=== PATIENT | female | born 1950 | race Caucasian/White ===

== ENCOUNTER → 2018-12-01 | Outpatient (CLI) | payer MEDICARE, OTHER ==
[~2018-12-01] MED LIST: AMLO-150; BENA10TA4; METF10002 PO; PIOG15TA4; ROSU10TA2
== END | disposition home or self-care (01) ==
LOC: ROC 14:27
PROVIDERS: ATTEND Radiology Radiation Oncology
DX: C51.9 Malignant neoplasm of vulva, unspecified (principal); E11.9 Type 2 diabetes mellitus without complications; E78.00 Pure hypercholesterolemia, unspecified; I10 Essential (primary) hypertension; Z88.0 Allergy status to penicillin; Z78.0 Asymptomatic menopausal state
CPT/HCPCS: G0463

== ENCOUNTER → 2018-12-04 | Outpatient (CLI) | payer MEDICARE, OTHER | END | disposition home or self-care (01) | LOC: PETCFH 09:19 | PROVIDERS: ATTEND Specialist | DX: K57.30 Diverticulosis of large intestine without perforation or abscess without bleeding (principal); Z85.44 Personal history of malignant neoplasm of other female genital organs | CPT/HCPCS: 78815; A9552 ==

== ENCOUNTER 2019-01-14 12:07 | Emergency (ER) | payer MEDICARE, OTHER ==
[~2019-01-14] VITALS: Ht 165.1 cm; Wt 93.2 kg
[~2019-01-14 12:07] MED LIST changes: +CIPR500T3 PO
[2019-01-14 12:57] LABS: BASOPHILS # (AUTO) 0.02 x10^3/uL (0-0.1); BASOPHILS % (AUTO) 0 % (0-1); EOSINOPHILS # (AUTO) 0.08 x10^3/uL (0-0.4); EOSINOPHILS % (AUTO) 1 % (1-7); LYMPHOCYTES # (AUTO) 0.19 x10^3/uL (1-3.4); LYMPHOCYTES % (AUTO) 3 % (22-44); MD NO; MEAN CORPUSCULAR HGB CONC 32.9 g/dL (32.4-35.8); MEAN CORPUSCULAR VOLUME 91.1 fL (80-100); MONOCYTES # (AUTO) 0.44 x10^3/uL (0.2-0.8); MONOCYTES % (AUTO) 7 % (2-9); NEUTROPHILS % (AUTO) 89 % (42-75); PLATELET COUNT 271 x10^3/uL (130-400); RED BLOOD COUNT 3.72 x10^6/uL (3.82-5.3); RED CELL DISTRIBUTION WIDTH 13.7 % (9.6-15.2)
[2019-01-14] MEDS ORDERED: ACETAMINOPHEN 325 MG TABLET PO ONE (13:00)
[2019-01-14 13:07] LABS: ANION GAP 10 mmol/L (5-15); CHLORIDE 106 mmol/L (98-107); CREATININE 0.91 mg/dL (0.55-1.02)
[2019-01-14 13:08] LABS: ALANINE AMINOTRANSFERASE 14 U/L (12-78); ALBUMIN 3.2 g/dL (3.4-5.0)
[2019-01-14 13:12] LABS: ALKALINE PHOSPHATASE 119 U/L (45-117); BILIRUBIN,TOTAL 1.2 mg/dL (0.2-1.0); TOTAL PROTEIN 7.1 g/dL (6.4-8.2)
[2019-01-14] MEDS ORDERED: MORPHINE SULFATE 4 MG/ML, 1ML ONE ×2 (13:15→14:59)
[2019-01-14] MEDS: MORPHINE SULFATE 4 MG/ML, 1ML IVPush PRN ×2 (13:19→15:02)
[2019-01-14] MEDS ORDERED: LIDOCAINE 2%,20 ML JEL.PF.APP MM ONE (13:24)
--- NOTE | 2019-01-14 13:29 | NUR ---
MINICATH COMPLETED AND WALKED TO LAB. PATIENT MEDICATED PRIOR TO MINICATH AND LIDOCAINE PLACED ON VULVA POST TREATMENT. PATIETN TOLERATED WELL.
[2019-01-14 13:30] LABS: CALCIUM 5.7 mg/dL (8.5-10.1)
[2019-01-14] MEDS ORDERED: ONDANSETRON 2MG/ML, 2ML IVPush ONE ×2 (13:30→17:30)
[2019-01-14] MEDS ORDERED: SODIUM CHLORIDE FLUSH 10ML SYR IVF ONE (13:30)
[2019-01-14] MEDS ORDERED: ACETAMINOPHEN 325 MG TABLET ONE (13:31)
[2019-01-14 13:41] LABS: MICROSCOPIC NOT IND
[2019-01-14 13:43] LABS: CULTURE INDICATED? NO
[2019-01-14] MEDS ORDERED: CALCIUM CHLORIDE 10%, 10ML SYR IVPush ONE (14:00)
[2019-01-14] MEDS ORDERED: INSULIN REGULAR 100 UNITS/ML, 3ML VIAL IVPush ONE (14:00)
[2019-01-14] MEDS ORDERED: DEXTROSE 50%, 50ML SYRINGE IVPush ONE (14:00)
[2019-01-14] MEDS ORDERED: CALCIUM GLUCONATE 9.2 MEQ in SODIUM CHLORIDE 0.9% 100 ML IV ONE (14:00)
[2019-01-14] MEDS ORDERED: SODIUM POLY SULFONATE UDC 15 GM/60 ML PO ONE (14:00)
--- NOTE | 2019-01-14 14:21 | NUR ---
PATIENT TAKEN TO CT SCAN
[2019-01-14] MEDS ORDERED: OMNIPAQUE 350 MG/ML, 100ML BOTTLE ONE (14:30)
--- NOTE | 2019-01-14 15:09 | NUR ---
MD IN TO SPEAK WITH PATIENT ABOUT PLAN OF CARE. PATIENT REQUESTED MORE PAIN MEDICATION. MEDS GIVEN.
[2019-01-14] MEDS ORDERED: CEFOTETAN PMX 1GM/50ML 50 ML ONE (15:20)
[2019-01-14] MEDS ORDERED: ONDANSETRON 2MG/ML, 2ML ONE (15:23)
[2019-01-14] MEDS ORDERED: METRONIDAZOLE PMX 500MG/100ML 100 ML IV ONE (15:30)
[2019-01-14] MEDS ORDERED: CEFOTETAN PMX 1GM/50ML 50 ML IV ONE (15:30)
--- NOTE | 2019-01-14 15:40 | NUR ---
COMFORT MEASURES TAKEN AND PATIENT PLACED ON 2 L NC FOR DESATURATION WITH SLEEPING.
[2019-01-14] MEDS ORDERED: METRONIDAZOLE PMX 500MG/100ML 100 ML ONE (16:13)
[2019-01-14 17:02] VITALS: BP 153/80
--- NOTE | 2019-01-14 17:14 | NUR ---
PATIENT BECAUSE NAUSEATED AGAING DRY HEAVED. PROVIDER NOTIFIED AND GIVEN ZOFRAN IV. AT BS. PLAN TO ENSURE NAUSEA IS RESOLVED AND THEN DC
== END 2019-01-14 17:56 | disposition home or self-care (01) ==
LOC: ED 14:09
DX: K57.92 Diverticulitis of intestine, part unspecified, without perforation or abscess without bleeding (principal); E83.51 Hypocalcemia; R50.9 Fever, unspecified; R10.2 Pelvic and perineal pain; I10 Essential (primary) hypertension; E11.9 Type 2 diabetes mellitus without complications
CPT/HCPCS: 36415; 74177; 80053; 81003; 83605; 84145; 85025; 87040; 93005; 96365; 96367; 96368; 96375; 96376; 99284; J0610; J2270; J2405; J3490; Q9967; J1815

== ENCOUNTER 2019-01-22 13:21 | Outpatient (CLI) | payer MEDICARE, OTHER ==
[~2019-01-22 13:21] MED LIST changes: -BENA10TA4; +BENA10TA6
== END 2019-01-22 23:59 | disposition home or self-care (01) ==
LOC: RAD 13:21
PROVIDERS: ATTEND Radiology Radiation Oncology
DX: C51.9 Malignant neoplasm of vulva, unspecified (principal); R60.0 Localized edema

== ENCOUNTER 2019-01-24 09:53 | Inpatient (IN) | payer MEDICARE, OTHER ==
[~2019-01-24] VITALS: Ht 165.1 cm; Wt 91.4 kg
[~2019-01-24 09:53] MED LIST changes: +BENA10TA4; -BENA10TA6
--- NOTE | 2019-01-24 10:19 | NUR ---
NEURO AT BS FOR EVAL. MD VICTOR AT BS FOR EVAL
[2019-01-24 10:25] LABS: MEAN CORPUSCULAR HEMOGLOBIN 29.4 pg (27.0-34.8); MEAN CORPUSCULAR HGB CONC 32.6 g/dL (32.4-35.8); MEAN PLATELET VOLUME 7.2 fL (7.4-10.4); PLATELET COUNT 170 x10^3/uL (130-400); RED BLOOD COUNT 3.02 x10^6/uL (3.82-5.3); RED CELL DISTRIBUTION WIDTH 13.9 % (9.6-15.2)
[2019-01-24 10:34] LABS: INTERNATIONAL NORMALIZED RATIO 1.2 (0.93-1.1); PROTHROMBIN TIME 12.5 Seconds (9.6-11.5)
[2019-01-24] MEDS ORDERED: ATOR-2 PO (10:37)
[2019-01-24 10:42] LABS: BASOPHILS % (AUTO) 0 % (0-1); EOSINOPHILS # (AUTO) 0.01 x10^3/uL (0-0.4); EOSINOPHILS % (AUTO) 0 % (1-7); LYMPHOCYTES # (AUTO) 0.11 x10^3/uL (1-3.4); LYMPHOCYTES % (AUTO) 1 % (22-44); MD SCAN; MONOCYTES # (AUTO) 0.27 x10^3/uL (0.2-0.8); MONOCYTES % (AUTO) 3 % (2-9); NEUTROPHILS % (AUTO) 95 % (42-75)
--- NOTE | 2019-01-24 10:47 | NUR ---
REPORT TO MARCIAL CARRANZA
--- NOTE | 2019-01-24 10:51 | NUR ---
REPORT FROM SIMONE CARRANZA, PT MOVED TO ROOM 16. PT ON MONITOR, VSS ON RA. AWAITING BED ASSIGNMENT
--- NOTE | 2019-01-24 11:02 | NUR ---
PT HAD EPISODE OF HR DROPPING INTO 40'S WITH MULTIFOCAL ECTOPY AND BACK INTO SR 83-96. MD NOTIFIED. REPEAT EKG ORDERED
[2019-01-24] MEDS ORDERED: MAGNESIUM SULFATE 1 GM/2 ML IVPush ONE (11:30)
[2019-01-24] MEDS ORDERED: CALCIUM GLUCONATE 9.2 MEQ in SODIUM CHLORIDE 0.9% 100 ML IV ONE (11:30)
[2019-01-24] MEDS ORDERED: LIDOCAINE 2%,20 ML JEL.PF.APP MM ONE (11:35)
--- NOTE | 2019-01-24 11:48 | NUR ---
STRAIGHT CATH UA OBTAINED, PT HAD ANOTHER EPISODE OF HR DROPPING INTO 40'S, NOTIFIED. PT MEDICATED PER MAR
[2019-01-24 11:51] LABS: THYROID STIMULATING HORMONE 0.613 mIU/L (0.358-3.740)
[2019-01-24] MEDS ORDERED: OMNIPAQUE 350 MG/ML, 100ML BOTTLE ONE (11:56)
[2019-01-24] MEDS ORDERED: MAGNESIUM SULFATE 1 GM in SODIUM CHLORIDE 0.9% 50 ML IV ONE (12:00)
[2019-01-24] MEDS ORDERED: ACETAMINOPHEN 325 MG TABLET PO ONE (12:00)
[2019-01-24] MEDS ORDERED: MORPHINE SULFATE 4 MG/ML, 1ML ONE (12:12)
--- NOTE | 2019-01-24 12:22 | NUR ---
ok per pharmacy to run Mag Sulfate and Calcium Gluconate together
[2019-01-24] MEDS ORDERED: ACETAMINOPHEN 500 MG TABLET ONE (12:23)
[2019-01-24 12:28] LABS: MICROSCOPIC NOT IND
[2019-01-24] MEDS ORDERED: MORPHINE SULFATE 4 MG/ML, 1ML IVPush PRN (12:30)
[2019-01-24 12:40] LABS: CULTURE INDICATED? NO
[2019-01-24] MEDS ORDERED: NS + 40MEQ KCL 500 ML IV SCH (13:00)
[2019-01-24] MEDS ORDERED: CEFTRIAXONE PMX 1GM/50ML 50 ML IV ONE (13:00)
--- NOTE | 2019-01-24 13:05 | NUR ---
report to break ednise Angeles
[2019-01-24] MEDS ORDERED: POTASSIUM CHLORIDE 20 MEQ in SODIUM CHLORIDE 0.9% 1,000 ML IV ONE (13:12)
[2019-01-24] MEDS ORDERED: CEFTRIAXONE PMX 1GM/50ML 50 ML ONE (13:18)
[2019-01-24] MEDS ORDERED: SODIUM CHLORIDE FLUSH 10ML SYR IVF PRN (13:30)
[2019-01-24] MEDS ORDERED: POTASSIUM PHOSPHATE 44 MEQ in SODIUM CHLORIDE 0.9% 500 ML IV ONE (13:30)
[2019-01-24] MEDS ORDERED: MAGNESIUM SULFATE 6 GM in SODIUM CHLORIDE 0.9% 150 ML IV ONE (13:30)
[2019-01-24] MEDS ORDERED: METRONIDAZOLE PMX 500MG/100ML 100 ML IV ONE (13:30)
[2019-01-24] MEDS ORDERED: MAGNESIUM SULF. PMX 20GM/500ML 500 ML IV PRN (13:30)
[2019-01-24] MEDS ORDERED: CALCIUM GLUCONATE 13.8 MEQ in SODIUM CHLORIDE 0.9% 100 ML IV ONE ×2 (13:30→22:00)
--- NOTE | 2019-01-24 13:44 | NUR ---
report to uyen walker
[2019-01-24 13:47] LABS: ALBUMIN 2.5 g/dL (3.4-5.0); ANION GAP 19 mmol/L (5-15); CHLORIDE 98 mmol/L (98-107)
[2019-01-24 13:50] LABS: % IRON SATURATION 13 % (20-55); ALANINE AMINOTRANSFERASE 9 U/L (12-78); ALKALINE PHOSPHATASE 97 U/L (45-117); BILIRUBIN,TOTAL 1.1 mg/dL (0.2-1.0); CREATININE 1.06 mg/dL (0.55-1.02); IRON LEVEL 25 mcg/dL (50-170); TOTAL IRON BINDING CAPACITY 188 mcg/dL (250-450); TOTAL PROTEIN 6.3 g/dL (6.4-8.2)
[2019-01-24] MEDS ORDERED: PHARMACY INSTRUCTION MC PRN (14:00)
[2019-01-24] MEDS ORDERED: ONDANSETRON 2MG/ML, 2ML IVPush PRN (14:00)
[2019-01-24] MEDS ORDERED: OXYcodone 5 MG/5 ML ORAL.SOL UDC PO PRN (14:00)
[2019-01-24 14:24] LABS: CALCIUM < 5.0 mg/dL (8.5-10.1)
[2019-01-24 14:30] LABS: HEMOGLOBIN A1C 8.3 % (4.2-6.3)
[2019-01-24 14:43] VITALS: BP 141/60
[2019-01-24] MEDS ORDERED: hydrALAzine 20 MG/ML, 1ML IV PRN (15:00)
[2019-01-24] MEDS ORDERED: CEFTRIAXONE PMX 2GM/50ML 50 ML IV SCH (15:00)
[2019-01-24] MEDS: SODIUM CHLORIDE 0.9% 1,000 ML IV SCH (15:41)
[2019-01-24] MEDS: POTASSIUM CHLORIDE 20 MEQ TAB.ER.PRT PO SCH ×3 (16:00→20:04)
[2019-01-24] MEDS ORDERED: METF500T17 PO (16:04)
[2019-01-24] MEDS: HEPARIN 5,000 UNITS/ML, 1ML SQ SCH (16:29)
[2019-01-24] MEDS: METRONIDAZOLE PMX 500MG/100ML 100 ML IV SCH (16:29)
[2019-01-24] MEDS: FERROUS SULFATE 325 MG TABLET PO SCH (18:05)
[2019-01-24] MEDS: INSULIN LISPRO 100 UNITS/ML, PEN SQ-INSULIN SCH ×2 (18:06→20:10)
[2019-01-24 20:17] VITALS: BP 144/71
[2019-01-24 20:34] LABS: ALBUMIN 2.3 g/dL (3.4-5.0); ANION GAP 11 mmol/L (5-15); CHLORIDE 98 mmol/L (98-107)
[2019-01-24 20:39] LABS: ALANINE AMINOTRANSFERASE 10 U/L (12-78); ALKALINE PHOSPHATASE 95 U/L (45-117); BILIRUBIN,TOTAL 1.8 mg/dL (0.2-1.0); CREATININE 0.81 mg/dL (0.55-1.02); TOTAL PROTEIN 6.6 g/dL (6.4-8.2)
[2019-01-24 20:42] LABS: CALCIUM 5.9 mg/dL (8.5-10.1)
[2019-01-24] MEDS ORDERED: ATORVASTATIN 80 MG TABLET PO SCH (21:00)
[2019-01-24] MEDS ORDERED: POTASSIUM CHLORIDE 20 MEQ TAB.ER.PRT PO ONE (22:00)
[2019-01-25] MEDS ORDERED: POTASSIUM CHLORIDE 20 MEQ in SODIUM CHLORIDE 0.9% 250 ML IV ONE
[2019-01-25] MEDS: HEPARIN 5,000 UNITS/ML, 1ML SQ SCH ×3 (00:12→16:11)
[2019-01-25 00:30] VITALS: BP 148/74
[2019-01-25] MEDS: METRONIDAZOLE PMX 500MG/100ML 100 ML IV SCH ×3 (00:46→16:44)
[2019-01-25] MEDS: SODIUM CHLORIDE 0.9% 1,000 ML IV SCH (03:59)
[2019-01-25] MEDS ORDERED: CALCIUM GLUCONATE 13.8 MEQ in SODIUM CHLORIDE 0.9% 100 ML IV ONE ×2 (05:00)
[2019-01-25 05:02] LABS: ALBUMIN 2.3 g/dL (3.4-5.0); ANION GAP 7 mmol/L (5-15); CALCIUM 7.1 mg/dL (8.5-10.1); CHLORIDE 106 mmol/L (98-107)
[2019-01-25 05:07] LABS: ALANINE AMINOTRANSFERASE 10 U/L (12-78); ALKALINE PHOSPHATASE 98 U/L (45-117); BILIRUBIN,TOTAL 0.9 mg/dL (0.2-1.0); CHOLESTEROL, TOTAL 92 mg/dL (140-239); CREATININE 0.67 mg/dL (0.55-1.02); HDL CHOL % 50 % (28-40); HDL CHOLESTEROL (DIRECT) 46 mg/dL (40-60); LDL CHOLESTEROL,CALCULATED 27 mg/dL (54-169); LDL/HDL RATIO 0.6 (0.5-3.0); TOTAL PROTEIN 6.4 g/dL (6.4-8.2); TRIGLYCERIDES 93 mg/dL (50-200); VLDL CHOLESTEROL 19 mg/dL (0-25)
[2019-01-25] MEDS: INSULIN LISPRO 100 UNITS/ML, PEN SQ-INSULIN SCH ×3 (07:00→16:00)
[2019-01-25] MEDS: FERROUS SULFATE 325 MG TABLET PO SCH ×3 (08:37→16:44)
[2019-01-25 08:40] VITALS: BP 171/81
[2019-01-25] MEDS ORDERED: AMLODIPINE 5 MG TABLET PO SCH (09:00)
[2019-01-25] MEDS ORDERED: ASPIRIN 81 MG TABLET CHEW PO/NG SCH (09:00)
[2019-01-25 13:00] VITALS: BP 131/73
[2019-01-25] MEDS ORDERED: CEFTRIAXONE PMX 2GM/50ML 50 ML IV SCH (13:30)
[2019-01-25] MEDS ORDERED: CALC1TAB68 PO (16:01)
[2019-01-25] MEDS ORDERED: FERR-51 PO (16:01)
[2019-01-25] MEDS ORDERED: CIPR500T87 PO (16:03)
[2019-01-25] MEDS ORDERED: METR500T PO (16:03)
== END 2019-01-25 18:57 | disposition home health service (06) | DRG 640 ==
LOC: ED 10:26 → SUATTDRO 13:01 → EDIP 13:29 → 5SO 14:27
PROVIDERS: ADMIT Internal Medicine; ATTEND Internal Medicine
PROC: 0T9B70Z Drainage of Bladder with Drainage Device, Via Natural or Artificial Opening (ICD-10-PCS; principal; 2019-01-24)
DX: E83.51 Hypocalcemia (principal); J96.00 Acute respiratory failure, unspecified whether with hypoxia or hypercapnia; R65.11 Systemic inflammatory response syndrome (SIRS) of non-infectious origin with acute organ dysfunction; R47.01 Aphasia; K57.92 Diverticulitis of intestine, part unspecified, without perforation or abscess without bleeding; N18.3 Chronic kidney disease, stage 3 (moderate); E78.5 Hyperlipidemia, unspecified; E83.39 Other disorders of phosphorus metabolism; Z96.651 Presence of right artificial knee joint; E66.01 Morbid (severe) obesity due to excess calories; D50.9 Iron deficiency anemia, unspecified; E11.22 Type 2 diabetes mellitus with diabetic chronic kidney disease; E83.42 Hypomagnesemia; E87.6 Hypokalemia; I12.9 Hypertensive chronic kidney disease with stage 1 through stage 4 chronic kidney disease, or unspecified chronic kidney disease; I49.5 Sick sinus syndrome; Z85.44 Personal history of malignant neoplasm of other female genital organs; Z98.84 Bariatric surgery status; Z92.3 Personal history of irradiation; Z92.21 Personal history of antineoplastic chemotherapy
CPT/HCPCS: 36415; 70450; 70496; 70498; 70553; 71045; 74176; 80047; 80053; 80061; 81003; 82330; 82962; 83036; 83540; 83550; 83605; 83735; 84100; 84145; 84443; 85025; 85610; 85730; 87040; 93005; 93306; 96374; 99291; G0378; J0610; J0696; J1644; J3475; J3480; Q9967; 92523-GN; J1815; J2270; J7030; J7040; J7050

== ENCOUNTER → 2019-06-30 | Outpatient (CLI) | payer MEDICARE, OTHER ==
[~2019-06-30] MED LIST changes: -AMLO-150; +AMLO-150 PO; +ATOR-2 PO; +ATOR20TA37 PO; -BENA10TA4; +BENA10TA6; +CALC1TAB68 PO; +CIPR500T87 PO; +FERR-51 PO; +HYDR-3240 PO; +METF500T17 PO; +METR500T PO
[2019-06-30 12:39] LABS: INTERNATIONAL NORMALIZED RATIO 0.97 (0.93-1.1); PROTHROMBIN TIME 10.2 Seconds (9.6-11.5)
[2019-06-30 12:42] LABS: ALBUMIN 3.5 g/dL (3.4-5.0); ANION GAP 8 mmol/L (5-15); CALCIUM 8.7 mg/dL (8.5-10.1); CHLORIDE 109 mmol/L (98-107)
[2019-06-30 12:45] LABS: ALANINE AMINOTRANSFERASE 17 U/L (12-78); ALKALINE PHOSPHATASE 150 U/L (45-117); BILIRUBIN,TOTAL 0.8 mg/dL (0.2-1.0); CREATININE 0.93 mg/dL (0.55-1.02); TOTAL PROTEIN 7.5 g/dL (6.4-8.2)
== END | disposition home or self-care (01) ==
LOC: STAR 11:21
PROVIDERS: ATTEND Specialist
CPT/HCPCS: 36415; 80053; 85610; 85730; 93005

== ENCOUNTER 2019-07-28 13:41 | Outpatient (CLI) | payer MEDICARE, OTHER ==
[~2019-07-28 13:41] MED LIST changes: +BENA10TA59; -BENA10TA6; -PIOG15TA4; +PIOG15TA69
[2019-07-28 15:59] LABS: BASOPHILS # (AUTO) 0.01 x10^3/uL (0-0.1); BASOPHILS % (AUTO) 0 % (0-1); EOSINOPHILS # (AUTO) 0.04 x10^3/uL (0-0.4); EOSINOPHILS % (AUTO) 1 % (1-7); LYMPHOCYTES # (AUTO) 0.42 x10^3/uL (1-3.4); LYMPHOCYTES % (AUTO) 5 % (22-44); MD NO; MEAN CORPUSCULAR HEMOGLOBIN 30.4 pg (27.0-34.8); MEAN CORPUSCULAR HGB CONC 32.5 g/dL (32.4-35.8); MEAN CORPUSCULAR VOLUME 93.7 fL (80-100); MEAN PLATELET VOLUME 7.9 fL (7.4-10.4); MONOCYTES # (AUTO) 0.38 x10^3/uL (0.2-0.8); MONOCYTES % (AUTO) 4 % (2-9); NEUTROPHILS # (AUTO) 8.19 x10^3/uL (1.8-6.8); NEUTROPHILS % (AUTO) 91 % (42-75); PLATELET COUNT 444 x10^3/uL (130-400); RED BLOOD COUNT 3.93 x10^6/uL (3.82-5.3); RED CELL DISTRIBUTION WIDTH 13.3 % (9.6-15.2)
[2019-07-28 16:59] LABS: ALANINE AMINOTRANSFERASE 9 U/L (12-78); ALBUMIN 3.5 g/dL (3.4-5.0); ANION GAP 10 mmol/L (5-15); CHLORIDE 109 mmol/L (98-107); CREATININE 0.95 mg/dL (0.55-1.02)
[2019-07-28 17:01] LABS: ALKALINE PHOSPHATASE 134 U/L (45-117); BILIRUBIN,TOTAL 1.2 mg/dL (0.2-1.0); TOTAL PROTEIN 7.9 g/dL (6.4-8.2)
== END 2019-07-28 23:59 | disposition home or self-care (01) ==
LOC: PETCFH 13:41
PROVIDERS: ATTEND Specialist
DX: C51.8 Malignant neoplasm of overlapping sites of vulva (principal); G89.3 Neoplasm related pain (acute) (chronic); D16.8 Benign neoplasm of pelvic bones, sacrum and coccyx
CPT/HCPCS: 36415; 78815; 80053; 85025; A9552